=== PATIENT | female | born 1970 | race Native Hawaiian/Other Pacific Islander ===

== ENCOUNTER 2022-11-03 19:50 | Emergency (ER) | payer OTHER ==
[~2022-11-03] VITALS: Ht 172.7 cm; Wt 64.4 kg
[2022-11-03 22:45] VITALS: BP 112/70; TEMP 97.9
== END 2022-11-03 22:45 | disposition home or self-care (01) ==
LOC: ED 19:50
DX: M54.59 Other low back pain (principal)
CPT/HCPCS: 96360; 96361; 96374; 96375; 96376; 99284; J1170; J1885; J2270; J2405